=== PATIENT | male | born 1955 | race Caucasian/White ===

== ENCOUNTER → 2018-02-26 20:06 | Outpatient (CLI) | payer OTHER, SELFPAY | PROVIDERS: Visit Provider Nurse Practitioner Family | DX: G47.33 Obstructive sleep apnea (adult) (pediatric) (principal) | CPT/HCPCS: 95811 ==

== ENCOUNTER 2023-03-01 19:38 | Emergency (ER) | payer MEDICARE, SELFPAY ==
--- NOTE | 2023-03-01 19:47 | ECG_ITS ---
APPROVED REPORT Exam: Resting ECG HR:71 bpm ECG Measurements Heart Rate 71 AXES TN 173 P 63 QRSd 102 QRS 71 QT 370 T 49 QTc 393 Conclusion SINUS RHYTHM WITH SINUS ARRHYTHMIA NONSPECIFIC T-WAVE ABNORMALITY BORDERLINE ECG UNCONFIRMED REPORT Electronically signed by : Mansoor Musa MD 03/02/2023 21:45:17
--- NOTE | 2023-03-01 19:48 | CT_ITS ---
PROCEDURE INFORMATION: Exam: CT Abdomen And Pelvis With Contrast Exam date and time: 03/01/2023 8:22 PM Age: 67 years old Clinical indication: Abdominal pain TECHNIQUE: Imaging protocol: Computed tomography of the abdomen and pelvis with contrast. Radiation optimization: All CT scans at this facility use at least one of these dose optimization techniques: automated exposure control; mA and/or kV adjustment per patient size (includes targeted exams where dose is matched to clinical indication); or iterative reconstruction. Contrast material: ISOVUE; Contrast volume: 75 ml; Contrast route: IV; REPORTING DATA: Count of CT and Cardiac NM exams in prior 12 months: This patient has received 0 known CTs and 0 known cardiac nuclear medicine studies in the 12 months prior to the current study. COMPARISON: No relevant prior studies available. FINDINGS: Lungs: Bibasilar subsegmental atelectasis versus parenchymal scarring. Coronary arteries: Coronary artery calcification Liver: Hepatic steatosis. Gallbladder and bile ducts: Normal. No calcified stones. No ductal dilation. Pancreas: Normal. No ductal dilation. Spleen: Normal. No splenomegaly. Adrenal glands: Normal. No mass. Kidneys and ureters: Bilateral perinephric stranding. Findings nonspecific and may reflect acute versus chronic inflammatory change. Stomach and bowel: Colonic diverticulosis. No evidence of diverticulitis. Appendix: No evidence of appendicitis. Intraperitoneal space: Stranding of the peripancreatic mesenteric fat. Mild thickening of the duodenum involving the 2nd and 3rd portion. Small fluid collections extending along the paracolic gutters into the pelvis. Vasculature: Scattered regions of atherosclerotic vascular calcification within the abdominal aorta and common iliac arteries. Lymph nodes: Unremarkable. No enlarged lymph nodes. Urinary bladder: Unremarkable as visualized. Reproductive: Unremarkable as visualized. Bones/joints: Unremarkable. No acute fracture. Soft tissues: Unremarkable. IMPRESSION: 1. Findings compatible with pancreatitis. 2. Demonstration of small amount of peritonitis. 3. Associated findings compatible with duodenitis.
--- NOTE | 2023-03-01 19:48 | XR_ITS ---
PROCEDURE INFORMATION: Exam: XR Chest Exam date and time: 03/01/2023 8:28 PM Age: 67 years old Clinical indication: Other: Chest pain TECHNIQUE: Imaging protocol: Radiologic exam of the chest. Views: 1 view. COMPARISON: CT ABDOMEN PELVIS W CON 03/01/2023 8:22 PM FINDINGS: Lungs: Unremarkable. No consolidation. Pleural spaces: Minimal blunting of both costophrenic angles. Small pleural effusions could not be excluded. Heart/Mediastinum: Unremarkable. No cardiomegaly. Bones/joints: Unremarkable. IMPRESSION: Minimal blunting of both costophrenic angles. Small pleural effusions could not be excluded.
--- NOTE | 2023-03-01 19:51 | HMH.EDABDPAI ---
Discharge Plan Disposition Patient Disposition: er [facility] Condition: Good Prescriptions Prescriptions: No Action lisinopril 40 mg tablet 40 mg PO ONCE atorvastatin 40 mg tablet 40 mg PO ONCE folic acid 1 mg tablet 1 mg PO ONCE hydrochlorothiazide 25 mg tablet 25 mg PO QAM ibuprofen 800 mg tablet 800 mg PO TID diltiazem HCl 180 mg capsule,extended release 24 hr 180 mg PO ONCE thiamine HCl (vitamin B1) 50 mg tablet 50 mg PO BID fluticasone propionate 50 mcg/actuation spray,suspension 1 spray INTRANASAL ONCE tiotropium bromide 18 mcg capsule, w/inhalation device 1 cap INHALATION ONCE cyanocobalamin (vitamin B-12) 1,000 mcg capsule 1,000 mcg PO ONCE docusate sodium 250 mg capsule 250 mg PO ONCE albuterol sulfate 90 mcg/actuation aerosol powdr breath activated 1 inh INHALATION ONCE aspirin 81 mg tablet,chewable 81 mg PO ONCE Referrals Follow up/Referrals: Provider,Referral, MD [Primary Care Provider] - See instructions Clinical Impressions Clinical Impression: Acute alcoholic pancreatitis Stand Alone Forms Stand Alone Forms: Transfer Record - ED Instructions Patient Instructions: DI for Acute Abdominal Pain Discharge ED Provider: Osman Flores Abdominal Pain HPI General Chief Complaint: Abdominal Pain Stated Complaint: stomach pain Time Seen by Provider: 03/01/23 19:45 History of Present Illness HPI narrative: This is a very pleasant 67-year-old gentleman who had a nausea nasal diverticulum possible recall history who presents with a chief complaint of abdominal pain.Patient states that is been hurting for 1 to 2 days but became worse a couple of hours ago.He complains of a diffuse sharp abdominal pain. No exacerbating or relieving factors. Associated with nausea but no vomiting. No chest pain or shortness of breath. No fevers. No dysuria. No testicle pain. Related Data Home Medications Medication Instructions Recorded Confirmed albuterol sulfate 90 mcg/actuation 1 inh inhalation ONCE 02/05/18 breath activated powder inhaler aspirin 81 mg chewable tablet 81 mg PO ONCE 02/05/18 atorvastatin 40 mg tablet 40 mg PO ONCE 02/05/18 cyanocobalamin (vitamin B-12) 1,000 mcg PO ONCE 02/05/18 1,000 mcg capsule diltiazem HCl 180 mg capsule,24 180 mg PO ONCE 02/05/18 hr,extended release docusate sodium 250 mg capsule 250 mg PO ONCE 02/05/18 fluticasone propionate 50 1 spray intranasal ONCE 02/05/18 mcg/actuation nasal spray,suspension folic acid 1 mg tablet 1 mg PO ONCE 02/05/18 hydrochlorothiazide 25 mg tablet 25 mg PO QAM 02/05/18 ibuprofen 800 mg tablet 800 mg PO TID 02/05/18 lisinopril 40 mg tablet 40 mg PO ONCE 02/05/18 thiamine HCl (vitamin B1) 50 mg 50 mg PO BID 02/05/18 tablet tiotropium bromide 18 mcg capsule 1 cap inhalation ONCE 02/05/18 with inhalation device Allergies Allergy/AdvReac Type Severity Reaction Status Date / Time No Known Allergies Allergy Verified 03/01/23 20:19 [facility] Disclaimer: The information contained in this section may have been updated after the patient was seen, as this information can be updated by other users. Social History Smoking Status: Current every day smoker tobacco type: cigarettes alcohol intake: current counseling provided: none substance use type: marijuana current occupational status: retired Travel in the last 8 weeks: None household members: significant other ROS Obtained: Yes All systems reviewed & no additional complaints except as documented Physical Exam General General appearance: alert and in no apparent distress Head Head exam: atraumatic and normocephalic Eye Eye exam: Present normal appearance and EOMI ENT ENT exam: Present normal exam Neck Neck exam: Present normal inspection Chest Chest inspection: Present normal inspection Respiratory Respiratory exam: Pre
[2023-03-01 20:01] LABS: Basophils % 0.4 % (0.1-2.0); Eosinophils # 0.2 K/mm3 (0.0-0.4); Eosinophils % 1.9 % (0.1-12.0); Hematocrit 45.4 % (42.0-52.0); Hemoglobin 15.4 g/dL (14.1-18.0); Lymphocytes # 2.6 K/mm3 (0.7-4.5); Lymphocytes % 28.4 % (10-50); Mean Corpuscular HGB Conc 33.9 g/dL (31.8-35.4); Mean Corpuscular Hemoglobin 34.5 pg (27.0-31.2); Mean Corpuscular Volume 101.6 fl (80-94); Mean Platelet Volume 7.7 fl (7.4-10.4); Monocytes # 0.5 K/mm3 (0.1-1.0); Monocytes % 5.4 % (1.7-9.3); Neutrophils # 5.8 K/mm3 (1.8-7.8); Neutrophils % 63.9 % (37.0-80.0); Platelet Count 320 K/mm3 (142-424); Red Blood Count 4.47 M/mm3 (4.60-6.20); Red Cell Distribution Width 13.2 % (11.5-17.5); White Blood Count 9.1 K/mm3 (4.8-10.8)
[2023-03-01 20:02] VITALS: BP 152/81; PULSE 78; RESP 18; TEMP 36.8; O2SAT 97; BMI 38.2
[2023-03-01 20:05] LABS: Chloride 95 mmol/L (98-107); Sodium 135 mmol/L (136-145)
[2023-03-01 20:08] LABS: Alanine Aminotransferase 27 U/L (12-78); Albumin Level 4.5 g/dl (3.5-5.0); Albumin/Globulin Ratio 1.5 (1.1-1.8); Alkaline Phosphatase 82 U/L (38-126); Aspartate Amino Transferase 30 U/L (17-59); Bilirubin,Total 0.7 mg/dl (0.2-1.3); Blood Urea Nitrogen 14 mg/dl (9-20); Calcium 10.5 mg/dl (8.4-10.2); Carbon Dioxide 22 mmol/L (22.0-30.0); Creatinine Clearance Estimated 133 mL/min (50-200); Estimated Glomerular Filt Rate 75 ml/min (>60); GFR (African American) 90 ML/MIN (>60); Glucose 139 mg/dl (74-100); Lipase 255 U/L (23-300); Total Protein,Serum 7.5 g/dl (6.3-8.2)
[2023-03-01 20:25] LABS: Troponin I < 0.01 ng/ml (0.00-0.034)
[2023-03-01 21:04] VITALS: BP 98/56; PULSE 86; O2SAT 93
--- NOTE | 2023-03-01 21:04 | PC.NURSE ---
Pt c/o right shoulder pain. States that he was having shoulder pain prior to coming to the ed.
--- NOTE | 2023-03-01 21:44 | PC.NURSE ---
Patient states that he is a and would [facility].
[2023-03-01 21:46] LABS: Coronavirus 19, PCR Not Detected (NotDetected); Influenza A, PCR Not Detected (NotDetected); Influenza B, PCR Not Detected (NotDetected)
--- NOTE | 2023-03-01 21:46 | PC.NURSE ---
spoke with lindsey @ [place] for pt transfer
--- NOTE | 2023-03-01 22:01 | PC.NURSE ---
on phone with dr fournier @ [place]
--- NOTE | 2023-03-01 22:13 | PC.NURSE ---
pt has been accepted to [facility]
--- NOTE | 2023-03-01 23:51 | PC.NURSE ---
called [facility] per pt transfer to [facility] at this time
[2023-03-02 00:02] VITALS: BP 97/65; PULSE 68; RESP 18; TEMP 36.6; O2SAT 99
== END 2023-03-02 00:11 ==
PROVIDERS: Emergency Provider Emergency Medicine
DX: K85.20 Alcohol induced acute pancreatitis without necrosis or infection (principal); F17.210 Nicotine dependence, cigarettes, uncomplicated
CPT/HCPCS: 71045; 74177; 80053; 83690; 84484; 85025; 93005; 96374; 96375; 96376; 99285; C9803; J2405; Q9967; U0003; U0005

== ENCOUNTER 2023-08-02 14:31 | Emergency (ER) | payer MEDICARE, SELFPAY ==
[2023-08-02 14:32] VITALS: BP 122/71; PULSE 93; RESP 18; TEMP 36.7; O2SAT 99; BMI 29.9
[2023-08-02 14:50] VITALS: BP 122/71; PULSE 93; RESP 18; TEMP 36.7; O2SAT 99
--- NOTE | 2023-08-02 14:56 | XR_ITS ---
PROCEDURE INFORMATION: Exam: XR Abdomen Exam date and time: 08/02/2023 3:21 PM Age: 68 years old Clinical indication: Device placement; Gi device; Gastrostomy, other; Additional info: Concern for displacement of feeding tube TECHNIQUE: Imaging protocol: Radiologic exam of the abdomen. Views: Frontal supine view of the abdomen. 1 View. COMPARISON: CT ABDOMEN PELVIS W CON 03/01/2023 8:22 PM FINDINGS: Tubes, catheters and devices: Contrast has been injected through an indwelling percutaneous enterostomy tube. A 2nd catheter is superimposed upon the left abdomen and is unopacified. A metallic stent is superimposed upon the right upper abdomen and may be a TIPS or biliary stent. Gastrointestinal tract: Contrast fills the jejunum lumen and no contrast extravasation has occurred. Intestinal gas pattern is nonobstructive. Intraperitoneal space: Surgical clips are present in the right upper quadrant. Bones/joints: No fractures or focal bone lesions. Degenerative changes in the spine. Other findings: No abnormal calcifications or soft tissue masses. IMPRESSION: Well-positioned percutaneous enterostomy feeding tube. No extravasation of injected contrast. No other acute findings in the abdomen.
--- NOTE | 2023-08-02 14:58 | PC.NURSE ---
called medical records for discharge summary
--- NOTE | 2023-08-02 14:58 | PC.NURSE ---
Called RAD about order
[2023-08-02 15:00] VITALS: BP 116/74; PULSE 88; O2SAT 97
--- NOTE | 2023-08-02 15:25 | PC.NURSE ---
Called radiation therapist and requested radiology images be power-shared with [facility] and disc prepared
[2023-08-02 15:34] VITALS: BP 96/57; PULSE 56; O2SAT 96
--- NOTE | 2023-08-02 15:37 | HMH.EDGENADL ---
Discharge Plan Disposition Condition: Good Chief Complaint: Recheck/Abnormal Lab/Rx Prescriptions Prescriptions: No Action lisinopril 40 mg tablet 40 mg PO ONCE atorvastatin 40 mg tablet 40 mg PO ONCE folic acid 1 mg tablet 1 mg PO ONCE hydrochlorothiazide 25 mg tablet 25 mg PO QAM ibuprofen 800 mg tablet 800 mg PO TID diltiazem HCl 180 mg capsule,extended release 24 hr 180 mg PO ONCE thiamine HCl (vitamin B1) 50 mg tablet 50 mg PO BID fluticasone propionate 50 mcg/actuation spray,suspension 1 spray INTRANASAL ONCE tiotropium bromide 18 mcg capsule, w/inhalation device 1 cap INHALATION ONCE cyanocobalamin (vitamin B-12) 1,000 mcg capsule 1,000 mcg PO ONCE docusate sodium 250 mg capsule 250 mg PO ONCE albuterol sulfate 90 mcg/actuation aerosol powdr breath activated 1 inh INHALATION ONCE aspirin 81 mg tablet,chewable 81 mg PO ONCE Referrals Follow up/Referrals: Mauricio Woods MD [Primary Care Provider] - See instructions Clinical Impressions Clinical Impression: Dislodged jejunostomy tube Discharge ED Provider: Russell Mattson I General Adult HPI General Chief complaint: Recheck/Abnormal Lab/Rx Stated complaint: tube dislodged Time Seen by Provider: 08/02/23 14:49 Mode of Arrival: Ambulatory Source of Information: Patient Limitations: No Limitations Description of Symptoms (Recalled from ER Triage Doc. by RN): Pt stated that he was in ICU from february-may at . He was also just discharged 07/28/2023 from over pneumonia. He stated that he woke up this morning with his feeding tube pulled out. He stated that this has happened 3 times since may. He has hx of stroke so right sided weakness. History of Present Illness HPI narrative: Patient is a 68-year-old male with history of hypertension, COPD, alcohol use, prior duodenal ulcers and esophageal perforation with G-tube and J-tube in place who is presenting to the emergency department due to concern for slight J-tube dislodgment. History was conducted with the patient as well as his at bedside. They report that he had recently been evaluated for pneumonia and has subsequently been treated, has had improvement in symptoms. He reports that earlier this morning, they noted that the J-tube appeared to be several centimeters displaced from the skin, but has not come out of the skin. He denies any worsening nausea, vomiting, fever, chest pain, cough, any other acute symptoms. They were concerned that this has been slightly displaced. Otherwise had normal urine and stool output. Related Data Home Medications Medication Instructions Recorded Confirmed albuterol sulfate 90 mcg/actuation 1 inh inhalation ONCE 02/05/18 breath activated powder inhaler aspirin 81 mg chewable tablet 81 mg PO ONCE 02/05/18 atorvastatin 40 mg tablet 40 mg PO ONCE 02/05/18 cyanocobalamin (vitamin B-12) 1,000 mcg PO ONCE 02/05/18 1,000 mcg capsule diltiazem HCl 180 mg capsule,24 180 mg PO ONCE 02/05/18 hr,extended release docusate sodium 250 mg capsule 250 mg PO ONCE 02/05/18 fluticasone propionate 50 1 spray intranasal ONCE 02/05/18 mcg/actuation nasal spray,suspension folic acid 1 mg tablet 1 mg PO ONCE 02/05/18 hydrochlorothiazide 25 mg tablet 25 mg PO QAM 02/05/18 ibuprofen 800 mg tablet 800 mg PO TID 02/05/18 lisinopril 40 mg tablet 40 mg PO ONCE 02/05/18 thiamine HCl (vitamin B1) 50 mg 50 mg PO BID 02/05/18 tablet tiotropium bromide 18 mcg capsule 1 cap inhalation ONCE 02/05/18 with inhalation device Allergies Allergy/AdvReac Type Severity Reaction Status Date / Time No Known Allergies Allergy Verified 03/01/23 20:19 [facility] Disclaimer: The information contained in this section may have been updated after the patient was seen, as this information can be updated by other users. Social History (Updated 03/02/23 @ 00:12 by Osman Cheng
--- NOTE | 2023-08-02 15:38 | PC.NURSE ---
Rounded on pt. No needs voiced at this time. Call light within reach.
--- NOTE | 2023-08-02 15:39 | PC.NURSE ---
Calling [facility] for Dr. Mattson to consult Cardiothoasic surgery regarding GJ tube. Currently on-hold for provider
--- NOTE | 2023-08-02 15:49 | PC.NURSE ---
Dr. Mattson s/w with [facility]
[2023-08-02 16:00] VITALS: BP 105/66; PULSE 89; O2SAT 93
--- NOTE | 2023-08-02 16:29 | PC.NURSE ---
Placed tegaderm to hold g-j tube in place. Gave disk of rad, and verified pt has appt.
[2023-08-02 16:42] VITALS: BP 122/71; PULSE 92; RESP 18; TEMP 36.7; O2SAT 99
== END 2023-08-02 16:42 | disposition home or self-care (01) ==
PROVIDERS: Emergency Provider Emergency Medicine; PCP Family Medicine
DX: T85.528A Displacement of other gastrointestinal prosthetic devices, implants and grafts, initial encounter (principal); J44.9 Chronic obstructive pulmonary disease, unspecified; I10 Essential (primary) hypertension; F10.90 Alcohol use, unspecified, uncomplicated; Z87.19 Personal history of other diseases of the digestive system
CPT/HCPCS: 74018; 99283